=== PATIENT | male | born 1990 | race African-American/Black ===

== ENCOUNTER 2020-02-06 21:54 | Emergency (ER) | payer OTHER, SELFPAY ==
--- NOTE | ~2020-02-06 | XR_ITS ---
EXAMINATION: XR chest 1V portable DATE: 02/06/2020 22:35 INDICATION: Asthma presenting with shortness of breath TECHNIQUE: frontal view of the chest was obtained. COMPARISON: None FINDINGS: The lungs are clear with no focal airspace opacities, pulmonary edema, pleural effusion or pneumothor ax. The cardiomediastinal silhouette is normal. Visualized bones and soft tissues are unremarkable. IMPRESSION: 1. Normal chest radiograph. Reviewed, dictated and finalized at location A. IMPRESSION: 1. Normal chest radiograph.
[2020-02-06 21:56] VITALS: BP 138/75; PULSE 102; RESP 25; TEMP 36.6; O2SAT 96
[2020-02-06 22:03] VITALS: BP 147/90; PULSE 96; PULSE 98; RESP 15; TEMP 36.6; O2SAT 96
[2020-02-06 22:15] VITALS: O2SAT 92
[2020-02-06 22:20] VITALS: PULSE 84; RESP 14
[2020-02-06] MEDS: ALBUTEROL SULFATE NEB 2.5 MG/0.5 ML INH 5 MG INHALATION (22:20)
[2020-02-06 22:21] VITALS: PULSE 84; RESP 14
[2020-02-06 22:25] LABS: Basophils Percent Auto 0.6 % (0.2-1.2); Eosinophils Absolute Auto 0.5 K/mm3 (0-0.3); Eosinophils Percent Auto 6.8 % (0-4.4); Hematocrit 49.7 % (42.0-52.0); Hemoglobin 17.1 g/dL (14.0-18.0); Immature Granulocyte Absolute 0.04 K/mm3 (0.00-0.031); Immature Granulocyte Percent A 0.6 % (0-0.5); Lymphocytes Absolute Auto 4.06 K/mm3 (0.9-3.2); Lymphocytes Percent Auto 61.7 % (18.3-44.2); Mean Corpuscular HGB Conc 34.4 g/dl (32-36); Mean Corpuscular Hemoglobin 31.8 pg (26-34); Mean Corpuscular Volume 92.6 fl (80-100); Mean Platelet Volume 9.7 fl (7.4-10.4); Monocytes Absolute Auto 0.3 K/mm3 (0.1-0.6); Neutrophils Absolute Auto 1.7 K/mm3 (1.3-6.7); Neutrophils Percent Auto 25.3 % (45.5-73.1); Platelet Count Result 268 k/mm3 (150-375); Red Blood Count 5.37 M/mm3 (4.6-6.20); Red Cell Distribution Width 12.9 % (11.5-14.5); White Blood Count 6.6 K/mm3 (4.5-10.0)
[2020-02-06 22:35] VITALS: PULSE 88; RESP 15
[2020-02-06] MEDS: predniSONE 20 MG TABLET 60 MG PO (22:56)
[2020-02-06 23:19] LABS: Alanine Aminotransferase 12 U/L (4-50); Albumin Level 4.4 g/dL (3.5-5.1); Alkaline Phosphatase 61 U/L (38-126); Aspartate Amino Transferase 25 U/L (17-59); Bilirubin,Total 0.2 mg/dL (0.2-1.3); Blood Urea Nitrogen 14 mg/dL (9-20); Calcium 9.7 mg/dL (8.4-10.2); Carbon Dioxide 29 mmol/L (22-30); Chloride 100 mmol/L (98-107); Estimated Glomerular Filt Rate > 60; Glucose 91 mg/dL (75-110); Potassium 3.7 mmol/L (3.4-5.0); Sodium 138 mmol/L (137-145)
[2020-02-07 00:20] VITALS: BP 132/77; PULSE 82; RESP 18; O2SAT 98
--- NOTE | 2020-02-07 01:27 | ED.ASTHMA ---
HPI - Asthma General Chief Complaint: Asthma Stated Complaint: asthma attack Time Seen by Provider: 02/07/20 01:21 History of Present Illness HPI Narrative: Patient presents with diffuse wheezing. He has a history of asthma, and is out of his inhalers and his prednisone. He works in a [employer] environment. Change of weather is also a trigger for him. He does not smoke cigarettes, but is exposed to secondhand smoke. MD complaint: asthma attack and shortness of breath Onset (ago): day(s) Severity: moderate Context: ran out of meds Related Data Allergies Allergy/AdvReac Type Severity Reaction Status Date / Time No Known Allergies Allergy Verified 02/06/20 22:05 Review of Systems Review of Systems: Narrative: CONSTITUTIONAL: Denies fever, chills, or sweats. EYES: Denies visual changes, redness, or discharge. ENT: Denies rhinorrhea, congestion, sore throat, or otalgia. CARDIOVASCULAR: Denies chest pain, palpitations, or edema. RESPIRATORY: He has cough and dyspnea. GASTROINTESTINAL: Denies abdominal pain, nausea, vomiting, or diarrhea. GENITOURINARY: Denies dysuria or hematuria. SKIN: Denies rash or itching. MUSCULOSKELETAL: Denies back pain, joint pain, or myalgia. NEUROLOGIC: Denies headache, numbness, or weakness. PSYCHIATRIC: Denies anxiety or depression. [facility] Past Medical History Medical History (Updated 02/07/20 @ 01:32 by Alison Laughlin MD) Asthma with acute exacerbation Surgical History Surgical History History of surgery Social History Social History (Updated 02/07/20 @ 01:33 by Alison Laughlin MD) Smoking status: Former smoker Alcohol intake: current Substance use: never Exam Narrative: Exam Narrative: GENERAL: Well-appearing, well-nourished, and in no acute distress. Tattoos. HEAD: Normocephalic, atraumatic. EYES: PERRLA and EOMI. ENT: Nares clear, no rhinorrhea or epistaxis. Mucous membranes moist. NECK: Supple. CHEST: Very wheezes on the posterior right. no respiratory distress. HEART: Regular rate and rhythm. No murmur heard. Normal peripheral pulses. ABDOMEN: Soft, nontender, nondistended, normal active bowel sounds. EXTREMITIES: Normal range of motion. No edema. SKIN: Warm, dry, no rash. NEURO: No focal deficits. Alert and oriented x3. PSYCH: Normal mood and affect. Course Vital Signs Vital signs: Vital Signs Temperature 97.9 F 02/06/20 21:56 Pulse Rate 102 H 02/06/20 21:56 Respiratory Rate 25 H 02/06/20 21:56 Blood Pressure 138/75 02/06/20 21:56 Pulse Oximetry 96 02/06/20 21:56 Temperature 97.9 F 02/06/20 22:03 Pulse Rate 88 02/06/20 22:35 Respiratory Rate 15 02/06/20 22:35 Blood Pressure 147/90 H 02/06/20 22:03 Pulse Oximetry 92 02/06/20 22:15 MDM - Asthma Medical Records Attestation: I reviewed the patient's medical records. Lab Data Attestation: I reviewed the patient's lab results. Result diagrams: 02/06/20 22:16 02/06/20 22:16 Labs: Lab Results 02/06/20 02/06/20 Range/Units 22:16 22:16 WBC 6.6 (4.5-10.0) K/mm3 RBC 5.37 (4.6-6.20) M/mm3 Hgb 17.1 (14.0-18.0) g/dL Hct 49.7 (42.0-52.0) % MCV 92.6 (80-100) fl MCH 31.8 (26-34) pg MCHC 34.4 (32-36) g/dl RDW 12.9 (11.5-14.5) % Plt Count 268 (150-375) k/mm3 MPV 9.7 (7.4-10.4) fl Immature Gran % (Auto) 0.6 H (0-0.5) % Neut % (Auto) 25.3 L (45.5-73.1) % Lymph % (Auto) 61.7 H (18.3-44.2) % [place] % (Auto) 5.0 (2.6-8.5) % Eos % (Auto) 6.8 H (0-4.4) % Baso % (Auto) 0.6 (0.2-1.2) % Lymph # (Auto) 4.06 H (0.9-3.2) K/mm3 [place] # (Auto) 0.3 (0.1-0.6) K/mm3 Eos # (Auto) 0.5 H (0-0.3) K/mm3 Baso # (Auto) 0.0 (0.0-0.1) K/mm3 Abs Immat Gran (auto) 0.04 H (0.00-0.031) K/mm3 Absolute Neuts (auto) 1.7 (1.3-6.7) K/mm3 Absolute Nucleated RBC 0.0 (0.0-0.012) K/mm3 Nucleated RBC % 0.0 (0.0-0.2) % Sodium 138 (137-145)
[2020-02-07 01:55] VITALS: BP 130/80; PULSE 78; RESP 18; O2SAT 99
== END 2020-02-07 01:56 | disposition home or self-care (01) ==
PROVIDERS: Emergency Provider Emergency Medicine
DX: J45.901 Unspecified asthma with (acute) exacerbation (principal); Z87.891 Personal history of nicotine dependence
CPT/HCPCS: 36415; 71045; 80053; 85025; 94640; 99283; J7512

== ENCOUNTER 2020-02-21 09:06 | Emergency (ER) | payer OTHER, SELFPAY ==
[2020-02-21] VITALS (9 sets, daily range): BP systolic 122–143; BP diastolic 80–97; PULSE 14–111; RESP 12–99; TEMP 36.3–36.7; O2SAT 92–99
--- NOTE | ~2020-02-21 | XR_ITS ---
EXAMINATION: XR chest 1V portable 02/21/2020 09:45 INDICATION: Shortness of breath PROCEDURE: AP portable chest COMPARISON: 02/06/2020 FINDINGS: The lungs are clear. The cardiomediastinal silhouette is within normal limits. There are no pleural effusions. There is no pneumothorax suspected. IMPRESSION: 1: NO ACUTE CARDIOPULMONARY DISEASE. Reviewed, dictated and finalized at location A.
[2020-02-21 09:30] LABS: Basophils Percent Auto 0.3 % (0.2-1.2); Eosinophils Absolute Auto 0.4 K/mm3 (0-0.3); Hematocrit 52.8 % (42.0-52.0); Hemoglobin 18.4 g/dL (14.0-18.0); Immature Granulocyte Absolute 0.02 K/mm3 (0.00-0.031); Immature Granulocyte Percent A 0.3 % (0-0.5); Lymphocytes Absolute Auto 3.27 K/mm3 (0.9-3.2); Lymphocytes Percent Auto 45.7 % (18.3-44.2); Mean Corpuscular HGB Conc 34.8 g/dl (32-36); Mean Corpuscular Hemoglobin 31.8 pg (26-34); Mean Corpuscular Volume 91.3 fl (80-100); Mean Platelet Volume 9.7 fl (7.4-10.4); Monocytes Absolute Auto 0.5 K/mm3 (0.1-0.6); Monocytes Percent Auto 6.7 % (2.6-8.5); Neutrophils Absolute Auto 2.9 K/mm3 (1.3-6.7); Platelet Count Result 270 k/mm3 (150-375); Red Blood Count 5.78 M/mm3 (4.6-6.20); Red Cell Distribution Width 12.7 % (11.5-14.5); White Blood Count 7.2 K/mm3 (4.5-10.0)
[2020-02-21] MEDS: methylPREDNISolone SOD SUCC 125 MG VIAL IV PUSH (09:30)
[2020-02-21] MEDS: ALBUTEROL SULFATE NEB 2.5 MG/0.5 ML INH 15 MG INHALATION (09:33)
[2020-02-21] MEDS: IPRATROPIUM BR 0.02% INH SOLN 0.5 MG/2.5 ML VIAL 1.5 MG INHALATION (09:33)
--- NOTE | 2020-02-21 09:33 | ECG_ITS ---
Measurements Intervals [place] Rate: 84 P: 77 GA: 137 QRS: 72 QRSD: 101 T: 61 QT: 345 QTc: 408 Interpretive Statements SINUS RHYTHM WITH SINUS ARRHYTHMIA BASELINE ARTIFACT- I, II, III, AVR, AVL, AVF, V2, V4-V6 NORMAL ECG Electronically Signed On 02-21-2020 11:26:00 CDT by David Askew D.O.
[2020-02-21 10:00] LABS: Blood Urea Nitrogen 13 mg/dL (9-20); Calcium 9.5 mg/dL (8.4-10.2); Carbon Dioxide 26 mmol/L (22-30); Chloride 105 mmol/L (98-107); Estimated CRCL calculation 117 ml/min; Estimated Glomerular Filt Rate > 60; Glucose 117 mg/dL (75-110); Potassium 3.9 mmol/L (3.4-5.0); Sodium 136 mmol/L (137-145)
--- NOTE | 2020-02-21 11:38 | ED.SOB ---
HPI - SOB/Dyspnea General Chief Complaint: Shortness of Breath/Dyspnea Stated Complaint: asthma attack Time Seen by Provider: 02/21/20 09:17 History of Present Illness HPI Narrative: Patient is a 29-year-old male who presents the ER with shortness of breath. Has history of asthma and feels like a asthma exacerbation. Finished a 5-day course of steroids yesterday. Has been using his home nebulizer without improvement. Denies any fever/chills/sweats. No productive cough. Has associated chest tightness. Reports his symptoms have been worse over the last month and he has been at multiple ERs. Related Data Allergies Allergy/AdvReac Type Severity Reaction Status Date / Time No Known Allergies Allergy Verified 02/21/20 09:14 Review of Systems Review of Systems: All systems reviewed & are unremarkable except as noted in HPI and below Constitutional: Constitutional: Denies chills, Denies fever(s) and Denies weakness ENT: Denies nasal congestion and Denies sore throat Cardiovascular: Cardiovascular: Denies chest pain and Denies radiating jaw, neck or arm pain Respiratory: Respiratory: Denies cough, Reports dyspnea and Reports wheezing Gastrointestinal: Gastrointestinal: Denies abdominal pain, Denies nausea and Denies vomiting PMFSH Past Medical History Medical History (Updated 02/21/20 @ 13:11 by Loco High MD) Asthma with acute exacerbation Social History Social History (Updated 02/07/20 @ 01:33 by Alison Laughlin MD) Smoking status: Former smoker Alcohol intake: current Substance use: never Exam Narrative: Exam Narrative: GENERAL: Uncomfortable-appearing, well-nourished, and in mild distress. HEAD: Normocephalic, atraumatic. ENT: Mucous membranes moist. CHEST: Mild respiratory distress with diffuse wheezing and diminished lung sounds throughout. HEART: Tachycardic and regular. Normal peripheral pulses. ABDOMEN: Soft, nontender, nondistended. EXTREMITIES: Normal range of motion. No edema. NEURO: Alert and oriented x3. PSYCH: Normal mood and affect. Course Course Emergency Course: Patient feels much better after hour-long nebulizer treatment. Lungs are nearly clear to auscultation but has a few faint scattered wheezes. Will discharge with a prednisone taper and give him Atrovent nebulizer fluid. Ambulates without hypoxia. Vital Signs Vital signs: Vital Signs Temperature 97.4 F L 06/20/20 09:10 Pulse Rate 106 H 02/21/20 09:10 Respiratory Rate 20 02/21/20 09:10 Blood Pressure 143/85 H 02/21/20 09:10 Pulse Oximetry 97 02/21/20 09:10 Temperature 97.4 F L 02/21/20 09:10 Pulse Rate 60 02/21/20 11:47 Respiratory Rate 24 H 02/21/20 11:47 Blood Pressure 123/97 H 02/21/20 11:47 Pulse Oximetry 97 02/21/20 11:47 MDM - SOB/Dyspnea Lab Data Result diagrams: 02/21/20 09:22 02/21/20 09:22 Labs: Lab Results 02/21/20 02/21/20 Range/Units 09:22 09:22 WBC 7.2 (4.5-10.0) K/mm3 RBC 5.78 (4.6-6.20) M/mm3 Hgb 18.4 H (14.0-18.0) g/dL Hct 52.8 H (42.0-52.0) % MCV 91.3 (80-100) fl MCH 31.8 (26-34) pg MCHC 34.8 (32-36) g/dl RDW 12.7 (11.5-14.5) % Plt Count 270 (150-375) k/mm3 MPV 9.7 (7.4-10.4) fl Immature Gran % (Auto) 0.3 (0-0.5) % Neut % (Auto) 41.0 L (45.5-73.1) % Lymph % (Auto) 45.7 H (18.3-44.2) % [place] % (Auto) 6.7 (2.6-8.5) % Eos % (Auto) 6.0 H (0-4.4) % Baso % (Auto) 0.3 (0.2-1.2) % Lymph # (Auto) 3.27 H (0.9-3.2) K/mm3 [place] # (Auto) 0.5 (0.1-0.6) K/mm3 Eos # (Auto) 0.4 H (0-0.3) K/mm3 Baso # (Auto) 0.0 (0.0-0.1) K/mm3 Abs Immat Gran (auto) 0.02 (0.00-0.031) K/mm3 Absolute Neuts (auto) 2.9 (1.3-6.7) K/mm3 Absolute Nucleated RBC 0.0 (0.0-0.012) K/mm3 Nucleated RBC % 0.0 (0.0-0.2) % Sodium 136 L (137-145) mmol/L Potassium 3.9 (3.4-5.0) mmol/L Chloride 105 (98-107) mmol/L Carbon Dioxide 26 (22-30) mmol/L BUN 13 (9-20)
--- NOTE | 2020-02-21 11:46 | PC.NURSE ---
Pt ambulated around station with walking pulse ox. Pulse ox remained between 100%-97%. Tolerated well. EDp aware
== END 2020-02-21 13:25 | disposition home or self-care (01) ==
PROVIDERS: Emergency Provider Emergency Medicine
DX: J45.901 Unspecified asthma with (acute) exacerbation (principal); Z87.891 Personal history of nicotine dependence
CPT/HCPCS: 36415; 71045; 80048; 85025; 93005; 96374; 99284; J2930